=== PATIENT | female | born 1970 | race African-American/Black ===

== ENCOUNTER 2017-06-26 13:07 | Emergency (ER) | payer OTHER ==
[~2017-06-26] VITALS: Ht 157.5 cm; Wt 158.8 kg
[2017-06-26 13:30] VITALS: BP 142/82
--- NOTE | 2017-06-26 14:07 | Emergency Room Report ---
History of Present Illness General Chief Complaint: Flu Like Symptoms Source: Patient Present Illness HPI 46-year-old female presents to the emergency department complaining of productive cough times one week denies fevers or chills. Patient also reports orthopnea and intermittent shortness of breath with exertion. Patient states she just finished antibiotic Z-Sukhdev which was given to her by urgent care. Pt. states they rx'd her an inhaler but she has not been using it. Patient denies past medical history denies swelling in the limbs, denies neck pain or stiffness. Denies recent travel or ill contacts. Denies CP, Palpitations, LOC, AMS, dizziness, Changes in Vision, Sensation, paresthesias, or a sudden severe headache. Allergies: Coded Allergies: No Known Allergies (Unverified , 06/26/17) Patient History Past Medical History: see triage record Past Surgical History: none Pertinent Family History: none Last Menstrual Period: 06/24/17 Now: No Immunizations: UTD Reviewed Nursing Documentation: PMH: Agreed, PSxH: Agreed Nursing Documentation-PMH Past Medical History: No Stated History Review of Systems All Other Systems: negative except mentioned in HPI Physical Exam Vital Signs Date Time Temp Pulse Resp B/P (MAP) Pulse Ox O2 Delivery O2 Flow Rate FiO2 06/26/17 13:12 97.5 75 18 138/86 98 Room Air Sp02 EP Interpretation: reviewed, normal General Appearance: no apparent distress, alert, GCS 15, non-toxic Head: normocephalic, atraumatic Eyes: bilateral eye normal inspection, bilateral eye PERRL ENT: hearing grossly normal, normal voice Neck: full range of motion, supple/symm/no masses Respiratory: chest non-tender, lungs clear, normal breath sounds, no wheezing - left sided wheezes, right lung fleming were CTA., speaking full sentences, other Cardiovascular #1: regular rate, rhythm, no edema, normal capillary refill Musculoskeletal: back normal, gait/station normal, normal range of motion, non- tender Neurologic: alert, oriented x3, responsive, motor strength/tone normal, sensory intact, speech normal Psychiatric: judgement/insight normal, memory normal, mood/affect normal Skin: normal color, no rash, warm/dry, well hydrated Lymphatic: no adenopathy Medical Decision Making PA Attestation Dr. Garner is my supervising Physician whom patient management has been discussed with. Diagnostic Impression: Primary Impression: Upper respiratory infection, acute ER Course 46-year-old female presents to the emergency department complaining of productive cough times one week denies fevers or chills. Patient also reports orthopnea and intermittent shortness of breath with exertion. Patient states she just finished antibiotic Z-Sukhdev which was given to her by urgent care. Pt. states they rx'd her an inhaler but she has not been using it. Patient denies past medical history denies swelling in the limbs, denies neck pain or stiffness. Denies recent travel or ill contacts. Denies CP, Palpitations, LOC, AMS, dizziness, Changes in Vision, Sensation, paresthesias, or a sudden severe headache. Ddx considered but are not limited to URI, pneumonia, PE, strep pharyngitis, meningitis. Vital signs: Pt. is afebrile, the remaining VS are WNL H&PE are most consistent with URI- no meningeal signs, oropharynx is not involved, no evidence of bacterial infection at this time. ORDERS: -- EK BPM NSR - no acute ST changes, some t-wave abnormalities noted- reviewed by Dr. Garner, her preliminary ED interpretation was scribed by AMBAR Oliveira -CXR: cardiomegaly, no obvious effusion per preliminary read in the ED by Dr. Garner, her interpretation has been scribed by AMBAR Oliveira -CBC: no leukocytosis unremarkable -CMP: unremarkable -ProBNP: WNL -Troponin: 0.00 WNL ED INTERVENTIONS: --DUO Nebs --PT. EDUCATION: Discussed antibiotic resistance with inappropriate prescribing of antibiotics for viral illnesses. Discussed signs and symptoms to indicate viral illness versus bacterial illness. DISCHARGE: At this time pt. is stable for d/c to home. Will provide printed patient care instructions, and any necessary prescriptions. Care plan and follow up instructions have been discussed with the patient prior to discharge. Labs Test 06/26/17 14:51 White Blood Count 10.7 K/UL (4.8-10.8) Red Blood Count 5.58 M/UL (4.20-5.40) Hemoglobin 13.1 G/DL (12.0-16.0) Hematocrit 44.2 % (37.0-47.0) Mean Corpuscular Volume 79 FL (80-99) Mean Corpuscular Hemoglobin 23.5 PG (27.0-31.0) Mean Corpuscular Hemoglobin Concent 29.7 G/DL (32.0-36.0) Red Cell Distribution Width 14.5 % (11.6-14.8) Platelet Count 308 K/UL (150-450) Mean Platelet Volume 7.9 FL (6.5-10.1) Neutrophils (%) (Auto) 67.7 % (45.0-75.0) Lymphocytes (%) (Auto) 22.2 % (20.0-45.0) Monocytes (%) (Auto) 6.6 % (1.0-10.0) Eosinophils (%) (Auto) 2.7 % (0.0-3.0) Basophils (%) (Auto) 0.8 % (0.0-2.0) Sodium Level 140 MMOL/L (136-145) Potassium Level 4.9 MMOL/L (3.5-5.1) Chloride Level 104 MMOL/L (98-107) Carbon Dioxide Level 29 MMOL/L (21-32) Anion Gap 7 mmol/L (5-15) Blood Urea Nitrogen 15 mg/dL (7-18) Creatinine 0.6 MG/DL (0.55-1.30) Estimat Glomerular Filtration Rate > 60 mL/min (>60) Glucose Level 85 MG/DL (74-106) Calcium Level 9.4 MG/DL (8.5-10.1) Total Bilirubin 0.3 MG/DL (0.2-1.0) Aspartate Amino Transf (AST/SGOT) 26 U/L (15-37) Alanine Aminotransferase (ALT/SGPT) 21 U/L (12-78) Alkaline Phosphatase 69 U/L (46-116) Troponin I 0.000 ng/mL (0.000-0.056) Pro-B-Type Natriuretic Peptide 16 pg/mL (0-125) Total Protein 8.3 G/DL (6.4-8.2) Albumin 3.4 G/DL (3.4-5.0) Globulin 4.9 g/dL Albumin/Globulin Ratio 0.7 (1.0-2.7) Last Vital Signs Date Time Temp Pulse Resp B/P (MAP) Pulse Ox O2 Delivery O2 Flow Rate FiO2 06/26/17 13:12 97.5 75 18 138/86 98 Room Air Disposition: HOME, SELF-CARE Condition: Stable Scripts Cetirizine Hcl* (ZYRTEC*) 10 Mg Tablet 10 MG ORAL DAILY for 39 Days, #30 TAB 0 Refills Prov: Beverly Oliveira 06/26/17 Guaifenesin (Guaifenesin) 1,200 Mg Tab.er.12h 1200 MG PO BID for 10 Days, #20 TAB Prov: Beverly Oliveira 06/26/17 Codeine/Promethazine Hcl* (PROMETHAZINE-CODEINE SYRUP*) 118 Ml Syrup 5 ML ORAL Q6H Y for For Cough, #240 ML 0 Refills Prov: Beverly Oliveira 06/26/17 Referrals: NON PHYSICIAN (PCP) Patient Instructions: Cardiomyopathy, Upper Respiratory Infection, Adult Additional Instructions: Take medications as directed. Follow up with a Primary Care Provider in 3-5 days, Should have CARDIOLOGY EVALUATION FOR CARDIOMEGALY even if your symptoms have resolved. --Please review list of primary care clinics, if you do not already have a primary care provider Return sooner to ED if new symptoms occur, or current symptoms become worse. Do not drink alcohol, drive, or operate heavy machinery while taking Cough Syrup as this may cause drowsiness. - Please note that this Emergency Department Report was dictated using [employer] python developer technology software, occasionally this can lead to erroneous entry secondary to interpretation by the dictation equipment. Beverly Oliveira Jun 26, 2017 14:07
[2017-06-26 15:07] LABS: BASOPHILS % (AUTO) 0.8 % (0.0-2.0); EOSINOPHILS % (AUTO) 2.7 % (0.0-3.0); LYMPHOCYTES % (AUTO) 22.2 % (20.0-45.0); MEAN CORPUSCULAR HEMOGLOBIN 23.5 PG (27.0-31.0); MEAN CORPUSCULAR HGB CONC 29.7 G/DL (32.0-36.0); MEAN CORPUSCULAR VOLUME 79 FL (80-99); MEAN PLATELET VOLUME 7.9 FL (6.5-10.1); MONOCYTES % (AUTO) 6.6 % (1.0-10.0); NEUTROPHILS % (AUTO) 67.7 % (45.0-75.0); PLATELET COUNT 308 K/UL (150-450); RED BLOOD COUNT 5.58 M/UL (4.20-5.40); RED CELL DISTRIBUTION WIDTH 14.5 % (11.6-14.8); WHITE BLOOD COUNT 10.7 K/UL (4.8-10.8)
[2017-06-26 15:37] LABS: ALANINE AMINOTRANSFERASE 21 U/L (12-78); ALBUMIN/GLOBULIN RATIO 0.7 (1.0-2.7); ANION GAP 7 mmol/L (5-15); ASPARTATE AMINO TRANSFERASE 26 U/L (15-37); CALCIUM 9.4 MG/DL (8.5-10.1); CARBON DIOXIDE 29 MMOL/L (21-32); CHLORIDE 104 MMOL/L (98-107); CREATININE 0.6 MG/DL (0.55-1.30); GLOMERULAR FILTRATION RATE > 60 mL/min (>60); POTASSIUM 4.9 MMOL/L (3.5-5.1); SODIUM 140 MMOL/L (136-145); TOTAL PROTEIN 8.3 G/DL (6.4-8.2)
[2017-06-26] MEDS ORDERED: ZYRTEC10 MG ORAL (16:12)
[2017-06-26] MEDS ORDERED: GUAIFENESIN1200 MG PO (16:12)
[2017-06-26] MEDS ORDERED: PROMETHAZINE-C118 M1 ORAL (16:12)
[2017-06-26] MEDS ORDERED: Albuterol ud Inhalation HHN ONE (16:15)
[2017-06-26] MEDS ORDERED: Ipratropium 0.02% Inh Soln 2.5ml UD HHN ONE (16:15)
[2017-06-26 16:53] VITALS: BP 125/84
--- NOTE | 2017-06-26 17:43 | Diagnostic Imaging Report ---
Indication: PAIN Technique: One view of the chest Comparison: none Findings: The heart is enlarged. Lungs and pleural spaces are clear. Impression: Cardiomegaly. No acute process
--- NOTE | 2017-06-28 17:33 | Cardiology Report ---
APPROVED REPORT EKG Measurement Heart [id number] Sinus bradycardia Rightward axis Incomplete right bundle branch block T wave abnormality, consider inferior ischemia T wave abnormality, consider anterolateral ischemia Abnormal ECG
== END 2017-06-26 16:57 | disposition home or self-care (01) ==
LOC: EMR 13:40
DX: J06.9 Acute upper respiratory infection, unspecified (principal)
CPT/HCPCS: 36415; 71010; 80053; 83880; 84484; 85025; 93005; 94640; 94664; 99284

== ENCOUNTER 2017-11-08 17:51 | Emergency (ER) | payer OTHER ==
[~2017-11-08] VITALS: Ht 157.5 cm; Wt 159.7 kg
[~2017-11-08 17:51] MED LIST: GUAIFENESIN1200 MG PO; PROMETHAZINE-C118 M1 ORAL; ZYRTEC10 MG ORAL
[2017-11-08] MEDS ORDERED: NKM (18:03)
[2017-11-08 18:19] VITALS: BP 167/96
[2017-11-08] MEDS ORDERED: PREDNISONE20 MG ORAL (18:39)
[2017-11-08] MEDS ORDERED: TRAMADOL HCL50 MG ORAL (18:39)
[2017-11-08] MEDS ORDERED: PROMETHAZINE-C118 M1 ORAL (18:39)
[2017-11-08] MEDS ORDERED: ALBUTEROL SULF8.5 GM INH (18:39)
[2017-11-08 18:47] VITALS: BP 162/90
--- NOTE | 2017-11-08 19:34 | Emergency Room Report ---
History of Present Illness General Chief Complaint: General Complaint Source: Patient Present Illness HPI 47-year-old female presents ED for evaluation. States her last 2 days she's been experiencing runny nose, cough, congestion. Cough is productive with whitish phlegm. Afebrile. Cough is worse at night. Denies chest pain or shortness of breath. Complaining of fullness in her right ear. Denies any sore throat. Denies sick contacts or recent travel. No other aggravating relieving factors. Denies any other associated symptoms Allergies: Coded Allergies: No Known Allergies (Unverified , 06/26/17) Patient History Past Medical History: none Past Surgical History: none Pertinent Family History: none Social History: Denies: smoking, alcohol use, drug use Last Menstrual Period: Current Now: No Immunizations: UTD Reviewed Nursing Documentation: PMH: Agreed, PSxH: Agreed Nursing Documentation-PMH Past Medical History: No Stated History Review of Systems All Other Systems: negative except mentioned in HPI Physical Exam Vital Signs Date Time Temp Pulse Resp B/P (MAP) Pulse Ox O2 Delivery O2 Flow Rate FiO2 11/08/17 17:59 99.6 79 20 167/96 98 Room Air 99.7 Sp02 EP Interpretation: reviewed, normal General Appearance: no apparent distress, alert, GCS 15, non-toxic, obese Head: normocephalic, atraumatic Eyes: bilateral eye normal inspection, bilateral eye PERRL ENT: hearing grossly normal, normal pharynx, no angioedema, normal voice Neck: full range of motion, supple/symm/no masses Respiratory: chest non-tender, lungs clear, normal breath sounds, speaking full sentences Cardiovascular #1: regular rate, rhythm, no edema Cardiovascular #2: 2+ carotid (R), 2+ carotid (L), 2+ radial (R), 2+ radial (L) , 2+ dorsalis pedis (R), 2+ dorsalis pedis (L) Gastrointestinal: normal bowel sounds, non tender, soft, non-distended, no guarding, no rebound Rectal: deferred Genitourinary: normal inspection, no CVA tenderness Musculoskeletal: back normal, gait/station normal, normal range of motion, non- tender Neurologic: alert, oriented x3, responsive, motor strength/tone normal, sensory intact, speech normal Psychiatric: judgement/insight normal, memory normal, mood/affect normal, no suicidal/homicidal ideation Reflexes: 3+ bicep (R), 3+ bicep (L), 3+ tricep (R), 3+ tricep (L), 3+ knee (R) , 3+ knee (L) Skin: normal color, no rash, warm/dry, well hydrated Lymphatic: no adenopathy Medical Decision Making Diagnostic Impression: Primary Impression: Bronchitis ER Course Hospital Course 47-year-old female presents ED complaining of cough runny nose congestive symptoms Differential diagnoses include: URI, pharyngitis, otitis media, asthma Clinical course Patient placed on stretcher. After initial history, physical exam reveals a female in no acute distress. Bilateral TM unremarkable. No pharyngeal erythema. No tonsillar exudates. No lymphadenopathy. lungs clear. abdomen soft. Clinical findings consistent with bronchitis. I will prescribed cough syrup, inhaler, prednisone Patient also complaining of some persistent right knee pain. History of osteoarthritis. No with taking ibuprofen but states it is not helping recently. Denies any recent new injury. does not have an appointment with her PMD for one more month. I will prescribe tramadol Diagnosis - bronchitis Stable and discharged home with Rx albuterol, prednisone, promethazine/codeine. Instructed to followup with PMD. Return to ED if symptoms recur or worsen Last Vital Signs Date Time Temp Pulse Resp B/P (MAP) Pulse Ox O2 Delivery O2 Flow Rate FiO2 11/08/17 18:47 99.7 77 20 162/90 98 Room Air 99.7 Status: improved Disposition: HOME, SELF-CARE Condition: Stable Scripts Tramadol Hcl* (ULTRAM*) 50 Mg Tablet 50 MG ORAL Q6H Y for For Pain, #30 TAB 0 Refills Prov: APOORVA AGUILERA M.D. 11/08/17 Prednisone* (PREDNISONE*) 20 Mg Tablet 40 MG ORAL DAILY, #10 TAB Prov: APOORVA AGUILERA M.D. 11/08/17 Codeine/Promethazine Hcl* (PROMETHAZINE-CODEINE SYRUP*) 118 Ml Syrup 5 ML ORAL Q6H Y for For Cough, #118 ML 0 Refills Prov: APOORVA AGUILERA M.D. 11/08/17 Albuterol Sulfate* (ALBUTEROL SULFATE MDI*) 8.5 Gm Hfa.aer.ad 2 PUFF INH Q6H, #1 EA 0 Refills Prov: APOORVA AGUILERA M.D. 11/08/17 Referrals: [facility],REFERRING (PCP) Patient Instructions: Acute Bronchitis, [id number] APOORVA AGUILERA M.D. Nov 08, 2017 19:34
== END 2017-11-08 18:47 | disposition home or self-care (01) ==
LOC: EMR 18:34
DX: J40 Bronchitis, not specified as acute or chronic (principal)
CPT/HCPCS: 99284

== ENCOUNTER 2018-06-12 13:25 | Emergency (ER) | payer OTHER ==
[~2018-06-12] VITALS: Ht 157.5 cm; Wt 147.4 kg
[~2018-06-12 13:25] MED LIST changes: +ALBUTEROL SULF8.5 GM INH; +NKM; +PREDNISONE20 MG ORAL; +TRAMADOL HCL50 MG ORAL
[2018-06-12 13:51] VITALS: BP 140/83
[2018-06-12] MEDS ORDERED: NAPROXEN500 M2 ORAL (14:52)
[2018-06-12] MEDS ORDERED: NITROFURANTOIN100 M2 ORAL (14:52)
--- NOTE | 2018-06-12 15:12 | Diagnostic Imaging Report ---
EXAM: XR Left Foot Complete, 3 or More Views CLINICAL HISTORY: PAIN TECHNIQUE: Frontal, lateral and oblique views of the left foot. COMPARISON: No relevant prior studies available. FINDINGS: Bones/joints: No visible displaced fracture. No dislocation. No osseous erosions. Visualized joint spaces appear unremarkable. Incidental note of a small plantar calcaneal bone spur and small Achilles tendon enthesophyte. Soft tissues: Mild soft tissue swelling overlying the forefoot. No radiopaque foreign body. IMPRESSION: Mild soft tissue swelling overlying the forefoot.
[2018-06-12] MEDS ORDERED: IBUPROFEN600 MG ORAL (15:37)
[2018-06-12] MEDS ORDERED: NORCO 5-325 TA1 EACH ORAL (15:37)
[2018-06-12 15:50] VITALS: BP 135/82
--- NOTE | 2018-06-12 21:43 | Emergency Room Report ---
History of Present Illness General Chief Complaint: General Complaint Source: Patient Present Illness HPI The patient is a 47-year-old female presenting for left foot pain for one week. She states that the pain occurred after wearing new shoes. She denies any injury to the area. Pain is an 8 out of 10 dull ache to the top of the left foot. Does not radiate. Worse with touch. She denies any other symptoms including numbness or tingling Allergies: Coded Allergies: No Known Allergies (Unverified , 06/26/17) Patient History Past Medical History: see triage record Pertinent Family History: none Last Menstrual Period: last week Reviewed Nursing Documentation: PMH: Agreed; PSxH: Agreed Nursing Documentation-PMH Past Medical History: No Stated History Review of Systems All Other Systems: negative except mentioned in HPI Physical Exam Vital Signs Date Time Temp Pulse Resp B/P (MAP) Pulse Ox O2 Delivery O2 Flow Rate FiO2 06/12/18 13:51 16 140/83 96 Room Air 06/12/18 13:51 98.6 64 98.6 Sp02 EP Interpretation: reviewed, normal General Appearance: no apparent distress, alert, GCS 15, non-toxic Head: normocephalic, atraumatic Musculoskeletal: back normal, normal range of motion, no calf tenderness, tender - L volar surface of foot lateral Neurologic: alert, oriented x3, responsive, motor strength/tone normal, sensory intact, speech normal Psychiatric: judgement/insight normal, memory normal, mood/affect normal, no suicidal/homicidal ideation Skin: normal color, no rash, warm/dry, well hydrated Procedures Splinting Splinting : Consent: Verbal Location: L foot Pre-Made Type: cast shoe Pre-Proc Neuro Vasc Exam: normal Post-Proc Neuro Vasc Exam: normal Patient Tolerated: Well Complications: None Medical Decision Making PA Attestation Dr. Quijano is my supervising physician. Patient management was discussed with my supervising physician Diagnostic Impression: Primary Impression: Foot pain Qualified Codes: M79.672 - Pain in left foot ER Course The patient is a 47-year-old female presenting for left foot pain for one week. Ddx considered include but not limited to sprain/strain, fracture, contusion PE: NAD L foot is TTP over the volar lateral surface. No ecchymosis. Full AROM intact. SILT L foot xray unremarkable. Cast shoe is placed. Pt DC'ed home with pain meds and RICE instructions. ER precautions given Other X-Ray Diagnostic Results Other X-Ray Diagnostic Results : X-Ray ordered: L foot # of Views/Limited Vs Complete: 3 View Indication: Pain EP Interpretation: Yes PA Xray: Interpretation reviewed, by supervising MD, and agrees with findings. Interpretation: no dislocation, no soft tissue swelling, no fractures Impression: No acute disease Electronically Signed by: Arjun Oliver PA-C Last Vital Signs Date Time Temp Pulse Resp B/P (MAP) Pulse Ox O2 Delivery O2 Flow Rate FiO2 06/12/18 15:50 98.6 85 16 135/82 98 Room Air 98.6 Status: improved Disposition: HOME, SELF-CARE Condition: Improved Scripts Hydrocodone Bit/Acetaminophen 5-325* (NORCO 5-325*) 1 Each Tablet 1 TAB ORAL Q6H PRN for For Pain, #8 TAB 0 Refills Prov: ARJUN OLIVER P.A. 06/12/18 Ibuprofen* (MOTRIN*) 600 Mg Tablet 600 MG ORAL Q8H PRN for For Pain, #30 TAB 0 Refills Prov: ARJUN OLIVER P.A. 06/12/18 Patient Instructions: RICE for Routine Care of Injuries Additional Instructions: I discussed my findings with the patient. All questions and concerns have been answered. Treatment and medication compliance have been addressed. I advised the patient that they need to follow up with PMD in 3-5 days. Return to ED if symptoms worsen, new symptoms arise, or if needed for any reason. Patient verbalized understanding of discharge instructions. ARJUN OLIVER Jun 12, 2018 21:43
== END 2018-06-12 15:50 | disposition home or self-care (01) ==
LOC: EMR 14:29
DX: M79.672 Pain in left foot (principal)
CPT/HCPCS: 29515; 99283

== ENCOUNTER 2020-08-13 11:47 | Emergency (ER) | payer OTHER ==
[~2020-08-13] VITALS: Ht 157.5 cm; Wt 158.8 kg
[~2020-08-13 11:47] MED LIST changes: +IBUPROFEN600 MG ORAL; +NAPROXEN500 M2 ORAL; +NITROFURANTOIN100 M2 ORAL; +NORCO 5-325 TA1 EACH ORAL
[2020-08-13 12:04] VITALS: BP 157/87
--- NOTE | 2020-08-13 12:05 | NUR ---
ED Nurse Note:pt. c/o sinus headache, and runny nose
--- NOTE | 2020-08-13 12:15 | Emergency Room Report ---
History of Present Illness General Chief Complaint: Upper Respiratory Illness Source: Patient Present Illness HPI 50-year-old female with history of tobacco smoke here complaining of 3 days of congestion, pressure in head, with continuous cough without shortness of breath. Reports that she has not been tested for Covid. Denies any diarrhea, loss of taste and smell. Sitting comfortably with stable vital signs. Reports that she always come down with a sinus infection usually gets Phenergan with codeine and some antibiotics. Reports that she is a heavy smoker. Denies chest pain at this time. Reports that the usually secondary to postnasal drip. Defers chest x-ray. Denies . Allergies: Coded Allergies: No Known Allergies (Unverified , 06/26/17) COVID-19 Screening Contact w/high risk pt: No Experienced COVID-19 symptoms?: No COVID-19 Testing performed [employer]ER: No Patient History Past Medical History: see triage record Past Surgical History: none Pertinent Family History: none Social History: Reports: smoking Now: No Immunizations: UTD Reviewed Nursing Documentation: PMH: Agreed; PSxH: Agreed Nursing Documentation-PMH Past Medical History: No History, Except For Review of Systems All Other Systems: negative except mentioned in HPI Physical Exam Vital Signs Date Time Temp Pulse Resp B/P (MAP) Pulse Ox O2 Delivery O2 Flow Rate FiO2 08/13/20 11:52 97.0 74 18 157/87 (110) 99 Room Air Sp02 EP Interpretation: reviewed, normal General Appearance: no apparent distress, alert, GCS 15, non-toxic Head: normocephalic, atraumatic Eyes: bilateral eye normal inspection, bilateral eye PERRL ENT: hearing grossly normal, no angioedema, normal voice Neck: full range of motion, supple/symm/no masses Respiratory: no respiratory distress, no retraction, no accessory muscle use Cardiovascular #1: regular rate, rhythm, no edema Gastrointestinal: non-distended Musculoskeletal: back normal Neurologic: alert, motor strength/tone normal, oriented x3, sensory intact, responsive, speech normal Psychiatric: judgement/insight normal, memory normal, mood/affect normal, no suicidal/homicidal ideation Skin: no rash Lymphatic: no adenopathy Medical Decision Making PA Attestation All diagnoses and treatment plans were reviewed and discussed with my supervising physician Dr. Preciado Diagnostic Impression: Primary Impression: Upper respiratory infection ER Course 50-year-old female with history of tobacco smoke here complaining of 3 days of congestion, pressure in head, with continuous cough without shortness of breath. Reports that she has not been tested for Covid. Denies any diarrhea, loss of taste and smell. Sitting comfortably with stable vital signs. Reports that she always come down with a sinus infection usually gets Phenergan with codeine and some antibiotics. Reports that she is a heavy smoker. Denies chest pain at this time. Reports that the usually secondary to postnasal drip. Defers chest x-ray. Denies . Ddx considered but are not limited to: strep pharyngitis, URI, tonsillitis, peritonsillar abscess, influneza, coronavirus Vital signs: are WNL, pt. is afebrile H&PE are most consistent with: Upper respiratory infection ORDERS: Azithromycin, prednisone, Phenergan ED INTERVENTIONS: None required at this time. DISCHARGE: At this time pt. is stable for d/c to home. Will provide printed patient care instructions, and any necessary prescriptions. Care plan and follow up instructions have been discussed with the patient prior to discharge. Patient take medication as directed, follow primary care provider, would not be ready for regular clinic at this time not necessary due to patient presentation and being stable. Advised patient to get tested for Covid, if worsening symptoms return to the emergency room also advised patient to self isolate Last Vital Signs Date Time Temp Pulse Resp B/P (MAP) Pulse Ox O2 Delivery O2 Flow Rate FiO2 08/13/20 12:04 74 18 Room Air 08/13/20 12:04 97.0 157/87 99 Disposition: HOME, SELF-CARE Condition: Stable Scripts Promethazine Hcl (PROMETHAZINE HCL*) 6.25 Mg/5 Ml Syrup 5 ML ORAL Q8H, #120 ML 0 Refills Prov: Esha Godwin 08/13/20 Azithromycin* (ZITHROMAX*) 250 Mg Tablet 250 MG ORAL DAILY, #6 TAB 0 Refills Take two tables once daily for 1 day, then one tablet once daily for 4 days. Prov: Esha Godwin 08/13/20 Prednisone* (PREDNISONE*) 20 Mg Tablet 40 MG ORAL DAILY for 5 Days, #10 TAB Prov: Esha Godwin 08/13/20 Patient Instructions: Upper Respiratory Infection, Adult Additional Instructions: Take medication as directed, follow-up primary care provider, hoarseness of return to emergency room, I also recommend getting tested for Covid Esha Godwin Aug 13, 2020 12:15
[2020-08-13] MEDS ORDERED: PREDNISONE20 MG ORAL (12:16)
[2020-08-13] MEDS ORDERED: PROMETHAZI6.25 MG/1 ORAL (12:16)
[2020-08-13] MEDS ORDERED: ZITHROMAX250 MG ORAL (12:16)
[2020-08-13 12:20] VITALS: BP 157/87
== END 2020-08-13 12:20 | disposition home or self-care (01) ==
LOC: EMR 12:15
DX: J06.9 Acute upper respiratory infection, unspecified (principal); F17.200 Nicotine dependence, unspecified, uncomplicated
CPT/HCPCS: 99282